=== PATIENT | female | born 1950 | race Hispanic/Latino ===

== ENCOUNTER → 2017-10-23 | Outpatient (CLI) | payer OTHER ==
[~2017-10-23] MED LIST: ALEN70TA47 PO; ATEN50TA PO; GABA-318 PO; HYDR10TA14 PO; LEVO75TA10 PO; LOSA100T29 PO; METF500T6 PO; OMEP20CA10 PO; SIMV40TA59 PO
== END | disposition home or self-care (01) ==
LOC: OIH 11:41
PROVIDERS: ATTEND Family Medicine
DX: M77.31 Calcaneal spur, right foot (principal); M85.871 Other specified disorders of bone density and structure, right ankle and foot
CPT/HCPCS: 73630

== ENCOUNTER → 2018-10-18 | Outpatient (CLI) | payer OTHER ==
[~2018-10-18] MED LIST changes: +ALEN70TA10 PO; -ALEN70TA47 PO; -GABA-318 PO; +GABA600T10 PO; +HYDR-3894 PO; -HYDR10TA14 PO; -LOSA100T29 PO; +LOSA100T58 PO; +METF-444 PO; -METF500T6 PO
== END | disposition home or self-care (01) ==
LOC: RAH 14:37
PROVIDERS: ATTEND Family Medicine
DX: Z12.31 Encounter for screening mammogram for malignant neoplasm of breast (principal)
CPT/HCPCS: 77067

== ENCOUNTER 2019-07-20 05:44 | Day surgery (SDC) | payer OTHER ==
[~2019-07-20] VITALS: Ht 142.2 cm; Wt 73.0 kg
[~2019-07-20 05:44] MED LIST changes: +OMEP-298 PO; -OMEP20CA10 PO; +SODIUM CHLORIDE 0.9% 1000ML 1,000 ML IV ONE
[2019-07-20 06:05] VITALS: BP 154/67
[2019-07-20] MEDS ORDERED: ERGO500014 PO (06:29)
[2019-07-20] MEDS ORDERED: AMLO2.5T4 PO (06:29)
[2019-07-20] MEDS ORDERED: ASPI-555 PO (06:29)
[2019-07-20] MEDS ORDERED: PROPOFOL 10 MG/ML 20ML VIAL IV ONE (07:15)
[2019-07-20 08:31] VITALS: BP 111/57
[2019-07-20 08:33] VITALS: BP 121/65
[2019-07-20 08:39] VITALS: BP 123/66
== END 2019-07-20 09:00 | disposition home or self-care (01) ==
LOC: ENDO 05:44 → DAH 05:44 → ENDO 09:00
PROVIDERS: ATTEND Internal Medicine
DX: K57.32 Diverticulitis of large intestine without perforation or abscess without bleeding (principal); K57.30 Diverticulosis of large intestine without perforation or abscess without bleeding; K64.1 Second degree hemorrhoids; R10.32 Left lower quadrant pain; I10 Essential (primary) hypertension; F32.9 Major depressive disorder, single episode, unspecified; E11.9 Type 2 diabetes mellitus without complications; E03.9 Hypothyroidism, unspecified; E78.5 Hyperlipidemia, unspecified; Z88.0 Allergy status to penicillin; Z86.010 Personal history of colon polyps; Z79.84 Long term (current) use of oral hypoglycemic drugs; Z79.899 Other long term (current) drug therapy; Z98.890 Other specified postprocedural states; Z82.49 Family history of ischemic heart disease and other diseases of the circulatory system; Z82.3 Family history of stroke
CPT/HCPCS: 45378; 82948 ×2; A4215; A4221; A4222; A4223; A4606; A4615; A4663; J2704; J7030

== ENCOUNTER 2020-10-29 00:40 | Observation (INO) | payer OTHER ==
[2020-10-29] VITALS (8 sets, daily range): BP systolic 104–146; BP diastolic 55–93
[~2020-10-29] VITALS: Ht 147.3 cm; Wt 78.2 kg
[~2020-10-29 00:40] MED LIST changes: -ALEN70TA10 PO; +ALEN70TA80 PO; +AMLO2.5T4 PO; +ASPI-556 PO; +ERGO500014 PO; -HYDR-3894 PO; +HYDR-4419 PO; -OMEP-298 PO; +OMEP20CA12 PO; -SODIUM CHLORIDE 0.9% 1000ML 1,000 ML IV ONE
[2020-10-29] MEDS ORDERED: ACETAMINOPHEN 325 MG TAB PO PRN (02:45)
[2020-10-29] MEDS ORDERED: NITROGLYCERIN 0.4 MG SL TAB SL PRN (04:15)
[2020-10-29 04:45] LABS: BASOPHILS % (AUTO) 0.2 % (0.0-5.0); EOSINOPHILS % (AUTO) 3.7 % (0.0-8.0); HEMATOCRIT 33.3 % (36-48); LYMPHOCYTES % (AUTO) 22.9 % (21.0-51.0); MEAN CORPUSCULAR HEMOGLOBIN 32.1 pg (27.0-33.0); MEAN CORPUSCULAR HGB CONC 33.3 g/dL (32.0-36.0); MEAN CORPUSCULAR VOLUME 96.2 fL (79-99); MONOCYTES % (AUTO) 4.6 % (3.0-13.0); NEUTROPHILS % (AUTO) 68.1 % (40.0-77.0); PLATELET COUNT (AUTO) 242 K/uL (130-400); RED BLOOD CELL COUNT(AUTO) 3.46 MIL/uL (4.00-5.50); WHITE BLOOD COUNT (AUTO) 8.9 K/uL (4.8-10.8)
[2020-10-29] MEDS ORDERED: FURO20TA6 PO (04:55)
[2020-10-29] MEDS ORDERED: NITR0.4T50 SL (04:55)
[2020-10-29] MEDS ORDERED: FOLI0.8T22 PO (04:55)
[2020-10-29 05:15] LABS: ALANINE AMINOTRANSFERASE 22 U/L (12-78); ALBUMIN 3.5 g/dL (3.5-5.0); ASPARTATE AMINOTRANSFERASE 24 U/L (10-37); BILIRUBIN,TOTAL 0.3 mg/dL (0.2-1.0); CARBON DIOXIDE 29 mmol/L (21-32); CHLORIDE 100 mmol/L (101-111); CREATINE KINASE, TOTAL 207 U/L (21-232); CREATININE 1.2 mg/dL (0.5-1.5); GLOMERULAR FILTR. RATE CALC 47 mL/min (>60); GLUCOSE,RANDOM 171 mg/dL (70-105); MYOGLOBIN 124 ng/mL (10-92); POTASSIUM 3.8 mmol/L (3.5-5.1); SODIUM SERUM 137 mmol/L (136-145); TOTAL PROTEIN, SERUM 6.6 g/dL (6.0-8.3); TROPONIN I < 0.04 ng/mL (0.00-0.06); UREA NITROGEN, BLOOD 25 mg/dL (7-18)
[2020-10-29 05:28] LABS: B-TYPE NATRIURETIC PEPTIDE 34 pg/mL (0-100)
[2020-10-29] MEDS ORDERED: LEVOTHYROXINE 50 MCG TABLET PO SCH (06:30)
[2020-10-29] MEDS: LEVOTHYROXINE 75 MCG TABLET PO SCH (06:58)
[2020-10-29] MEDS: INSULIN HUMULIN R 100 UNIT/ML 3ML SQ SCH ×4 (07:00→20:29)
[2020-10-29] MEDS ORDERED: FUROSEMIDE 20 MG TABLET PO SCH (08:00)
[2020-10-29] MEDS ORDERED: ENOXAPARIN SODIUM 60 MG/0.6 ML SQ SCH (09:00)
[2020-10-29] MEDS: ATENOLOL 50 MG TABLET PO SCH ×2 (11:25→20:28)
[2020-10-29] MEDS: GABAPENTIN 300 MG CAPSULE PO SCH ×4 (11:26→20:28)
[2020-10-29] MEDS: ASPIRIN 81MG TAB.CHEW PO SCH (11:26)
[2020-10-29] MEDS: CEFTRIAXONE SODIUM 1 GM IVP SCH (11:26)
[2020-10-29] MEDS: PANTOPRAZOLE 40 MG/VIAL IVP SCH (11:27)
[2020-10-29] MEDS: LOSARTAN 100 MG TABLET PO SCH (16:13)
[2020-10-29 20:44] LABS: APPEARANCE,URINE Clear (CLEAR); BILIRUBIN,URINE Negative (NEGATIVE); COLOR,URINE Yellow (YELLOW); GLUCOSE, URINE (UA) Negative (NEGATIVE); KETONES,URINE Negative (NEGATIVE); LEUKOCYTE ESTERASE ,URINE Negative (NEGATIVE); NITRATE,URINE Negative (NEGATIVE); OCCULT BLOOD,URINE Negative (NEGATIVE); PROTEIN,URINE Negative (NEGATIVE)
[2020-10-29] MEDS ORDERED: SIMVASTATIN 20 MG TABLET PO SCH (21:00)
[2020-10-30] VITALS: BP 120/37
[2020-10-30 04:00] VITALS: BP_SYST 111; BP_SYST 113; BP_SYST 119; BP_DIAS 61; BP_DIAS 68; BP_DIAS 75
[2020-10-30] MEDS: LEVOTHYROXINE 75 MCG TABLET PO SCH (06:47)
[2020-10-30] MEDS: INSULIN HUMULIN R 100 UNIT/ML 3ML SQ SCH ×3 (07:30→16:30)
[2020-10-30 08:00] VITALS: BP 121/75
[2020-10-30] MEDS: PANTOPRAZOLE 40 MG/VIAL IVP SCH (08:47)
[2020-10-30] MEDS: CEFTRIAXONE SODIUM 1 GM IVP SCH (08:47)
[2020-10-30] MEDS: LOSARTAN 100 MG TABLET PO SCH (08:47)
[2020-10-30] MEDS: ASPIRIN 81MG TAB.CHEW PO SCH (08:47)
[2020-10-30] MEDS: GABAPENTIN 300 MG CAPSULE PO SCH ×3 (08:47→17:08)
[2020-10-30] MEDS: ATENOLOL 50 MG TABLET PO SCH (08:47)
[2020-10-30 11:51] VITALS: BP 125/74
[2020-10-30] MEDS ORDERED: ENOXAPARIN SODIUM 40 MG/0.4 ML SYRINGE SQ SCH (12:00)
[2020-10-30] MEDS ORDERED: CETIRIZINE HCL 5 MG TABLET PO SCH (15:15)
[2020-10-30 16:03] VITALS: BP 128/75
[2020-10-31] MEDS ORDERED: CETIRIZINE HCL 5 MG TABLET PO SCH (09:00)
[2020-10-31] MEDS ORDERED: PANTOPRAZOLE SODIUM 40 MG TABLET.DR PO SCH (09:00)
== END 2020-10-30 18:50 | disposition home or self-care (01) ==
LOC: 4AH 01:42
PROVIDERS: ADMIT Internal Medicine Critical Care Medicine; ATTEND Internal Medicine Critical Care Medicine
DX: R55 Syncope and collapse (principal); I12.9 Hypertensive chronic kidney disease with stage 1 through stage 4 chronic kidney disease, or unspecified chronic kidney disease; E10.22 Type 1 diabetes mellitus with diabetic chronic kidney disease; N18.31 Chronic kidney disease, stage 3a; I25.10 Atherosclerotic heart disease of native coronary artery without angina pectoris; N39.0 Urinary tract infection, site not specified; E78.5 Hyperlipidemia, unspecified; E10.40 Type 1 diabetes mellitus with diabetic neuropathy, unspecified; E03.9 Hypothyroidism, unspecified; K29.70 Gastritis, unspecified, without bleeding; J32.9 Chronic sinusitis, unspecified; E66.9 Obesity, unspecified; J30.2 Other seasonal allergic rhinitis; M19.90 Unspecified osteoarthritis, unspecified site; G47.33 Obstructive sleep apnea (adult) (pediatric); Z99.89 Dependence on other enabling machines and devices; Z79.4 Long term (current) use of insulin; Z79.82 Long term (current) use of aspirin; Z79.899 Other long term (current) drug therapy; Z88.0 Allergy status to penicillin; W07.XXXA Fall from chair, initial encounter; Y93.89 Activity, other specified; Y92.89 Other specified places as the place of occurrence of the external cause
CPT/HCPCS: 36415; 70551; 71045; 80053; 81003; 82550; 82948 ×7; 83874; 83880; 84443; 84484 ×2; 85025; 93005; 93306; 93356; 93880; 96372; 96374; 96375; 96376; 97161; C9113 ×2; G0378 ×37; G0379; G8978; G8979; G8980; G8981; G8982; G8983; J0696 ×2; J1650; J1815

== ENCOUNTER → 2021-01-11 | Outpatient (CLI) | payer OTHER ==
[~2021-01-11] MED LIST changes: +FOLI0.8T22 PO; +NITR0.4T50 SL; -OMEP20CA12 PO
== END | disposition home or self-care (01) ==
LOC: RAH 13:16
PROVIDERS: ATTEND Family Medicine
DX: Z12.31 Encounter for screening mammogram for malignant neoplasm of breast (principal)
CPT/HCPCS: 77067

== ENCOUNTER 2021-07-31 15:06 | Emergency (ER) | payer OTHER ==
[~2021-07-31] VITALS: Ht 144.8 cm; Wt 72.6 kg
[2021-07-31] MEDS ORDERED: IPRATROPIUM/ALBUTEROL SULFATE 3 ML SOLUTION IH ONE (16:30)
[2021-07-31 16:32] LABS: BASOPHILS % (AUTO) 0.4 % (0.0-5.0); EOSINOPHILS % (AUTO) 7.4 % (0.0-8.0); HEMATOCRIT 36.4 % (36-48); LYMPHOCYTES % (AUTO) 26.7 % (21.0-51.0); MEAN CORPUSCULAR HEMOGLOBIN 32.8 pg (27.0-33.0); MONOCYTES % (AUTO) 5.4 % (3.0-13.0); NEUTROPHILS % (AUTO) 59.7 % (40.0-77.0); PLATELET COUNT (AUTO) 223 K/uL (130-400); RED CELL DISTRIBUTION WIDTH 12.4 % (11.0-15.5); WHITE BLOOD COUNT (AUTO) 6.9 K/uL (4.8-10.8)
[2021-07-31 16:51] LABS: B-TYPE NATRIURETIC PEPTIDE 47 pg/mL (0-100)
[2021-07-31 16:52] LABS: ALBUMIN 4.2 g/dL (3.5-5.0); BILIRUBIN,TOTAL 0.7 mg/dL (0.2-1.0); CREATININE 0.9 mg/dL (0.5-1.5); POTASSIUM 3.5 mmol/L (3.5-5.1); TOTAL PROTEIN, SERUM 7.8 g/dL (6.0-8.3)
[2021-07-31] MEDS ORDERED: DOXY-336 PO (17:41)
[2021-07-31] MEDS ORDERED: BENZ-39 PO (17:41)
[2021-07-31] MEDS ORDERED: ALBUHFA IH (17:41)
[2021-07-31 18:33] VITALS: BP 125/69
== END 2021-07-31 18:35 | disposition home or self-care (01) ==
LOC: EDH 15:06
DX: J20.8 Acute bronchitis due to other specified organisms (principal); B96.89 Other specified bacterial agents as the cause of diseases classified elsewhere; E87.1 Hypo-osmolality and hyponatremia; Z20.822 Contact with and (suspected) exposure to COVID-19; E11.9 Type 2 diabetes mellitus without complications; E78.00 Pure hypercholesterolemia, unspecified; I10 Essential (primary) hypertension; Z88.0 Allergy status to penicillin; Z79.82 Long term (current) use of aspirin; Z79.84 Long term (current) use of oral hypoglycemic drugs; Z79.899 Other long term (current) drug therapy
CPT/HCPCS: 36415; 71045; 80053; 82550; 83874; 83880; 84484; 85025; 87635; 93005; 94640; 99285; C9803

== ENCOUNTER → 2023-02-04 | Outpatient (CLI) | payer OTHER ==
[~2023-02-04] MED LIST changes: +ALBUHFA IH; +BENZ-39 PO; +DOXY-469 PO; -LOSA100T58 PO; +LOSA100T59 PO
== END | disposition home or self-care (01) ==
LOC: RAH 10:35
PROVIDERS: ATTEND Family Medicine
DX: Z12.31 Encounter for screening mammogram for malignant neoplasm of breast (principal)
CPT/HCPCS: 77067

== ENCOUNTER → 2024-03-11 | Outpatient (CLI) | payer OTHER ==
[~2024-03-11] MED LIST changes: -DOXY-469 PO; +DOXY100C61 PO
== END | disposition home or self-care (01) ==
LOC: RAH 11:12
PROVIDERS: ATTEND Family Medicine
DX: S33.39XA Dislocation of other parts of lumbar spine and pelvis, initial encounter (principal); S00.93XA Contusion of unspecified part of head, initial encounter; S33.140A Subluxation of L4/L5 lumbar vertebra, initial encounter; M53.3 Sacrococcygeal disorders, not elsewhere classified; Z98.890 Other specified postprocedural states; W01.0XXA Fall on same level from slipping, tripping and stumbling without subsequent striking against object, initial encounter; Y93.89 Activity, other specified; Y92.89 Other specified places as the place of occurrence of the external cause; Y99.8 Other external cause status
CPT/HCPCS: 70260; 72220